=== PATIENT | male | born 1965 | race Caucasian/White ===

== ENCOUNTER 2023-08-31 06:41 | Day surgery (SDC) | payer BC ==
[2023-08-29 13:17] VITALS: BMI 34.5
[2023-08-31] MEDS: PHENYLEPHRINE 2.5% OPTHALMIC DROP 2ML BOTTLE ONE (07:05)
[2023-08-31] MEDS: TROPICAMIDE 1% OPHTH SOLN 15 ML BOTTLE ONE (07:05)
[2023-08-31] MEDS: CIPROFLOXACIN 0.3% EYE DROPS 5 ML BOTTLE ONE (07:05)
[2023-08-31] MEDS: CYCLOPENTOLATE 2% OPHTH SOLN 2 ML BOTTLE ONE (07:05)
[2023-08-31] MEDS ORDERED: TETRACAINE 0.5% OPHTH SOLN 2 ML BOTTLE ONE (07:18)
[2023-08-31] MEDS ORDERED: CARBACHOL 0.01% INTRA-OCULAR 1.5 ML VIAL ONE (07:18)
[2023-08-31] MEDS ORDERED: NEO/POLYMYX B SULF/DEXAMETH OPHTHALMIC 5ML BOTTLE ONE (07:18)
[2023-08-31] MEDS ORDERED: EPINEPHrine/PF 1 MG/1 ML (1:1,000) AMPULE ONE (07:18)
[2023-08-31] MEDS ORDERED: LIDOCAINE 1% P/F 10 MG/ML VIAL ONE (07:18)
[2023-08-31] MEDS ORDERED: BSS (NA/CA/MG/K) BALANCED SALT SOLUTION OPHTH SOLN 15 ML BOTTLE ONE (07:18)
[2023-08-31] MEDS ORDERED: MIDAZOLAM HCL 2 MG/2 ML SINGLE DOSE VIAL ONE ×2 (07:28→08:10)
[2023-08-31 08:53] VITALS: RESP 19; TEMP 97.1
[2023-08-31 08:56] VITALS: BP 122/82; PULSE 79
== END 2023-08-31 09:30 | disposition home or self-care (01) ==
LOC: FASU 06:41
PROVIDERS: ATTEND Ophthalmology
PROC: 08RJ3JZ Replacement of Right Lens with Synthetic Substitute, Percutaneous Approach (ICD-10-PCS; principal; 2023-08-31 08:15)
DX: H26.8 Other specified cataract (principal)
CPT/HCPCS: 66984; V2632